=== PATIENT | female | born 1950 | race Caucasian/White ===

== ENCOUNTER 2023-09-22 06:53 | Emergency (ER) | payer MEDICARE, SELFPAY ==
[2023-09-22] VITALS (7 sets, daily range): BP systolic 126–167; BP diastolic 55–81; BMI 31.5
--- NOTE | 2023-09-22 07:31 | ED.GENMED ---
History of Present Illness
General
Chief Complaint: Chest Pain
Time Seen by Provider: 09/22/23 07:10
Travel History
Have you had any contact with someone who has COVID-19?: No
Do you have any symptoms of coronavirus? Fever > 100 degrees, chills, cough, shortness of breath, sore throat, loss of taste or smell, muscle aches, or headache?: No
History of Present Illness
History of Present Illness:
72 yo female w/ hx of HTN, Hypothyroidism and IBS presents to the Emergency Department for evaluation of chest pain radiating to the back beginning 1hr ago. Pain is rated 9/10, associated with L sided subjective 'heaviness'. No hx of similar. No
fevers, chills, sweats, coughing, SOB, N/V/D. Pain is not pleuritic. Recent admission last month for COPD exacerbation and BRADY. No leg swelling or extremity paresthesias. Non smoker.
Past History
Past History
ED Past Medical History: Asthma, COPD, Fibromyalgia, HTN and Other (ibs, complex Migraines, fibromyalgia, diverticulitis, sleep apnea); Negative CAD, IDDM, NIDDM or RI
ED Past Surgical History: Appendectomy, Cholecystectomy, Tonsilectomy and Other (partial gastrectomy, Billroth II)
Social History
Tobacco: Former smoker
Alcohol: None
Drug: None
Personal:
Living: with family
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
Family History
Family History: Other (No significant)
Review of Systems
Review of Systems
Allergies reviewed?: Yes
All Other Systems: ROS reviewed and negative except as documented in HPI and ROS
Phy Exam
Physical Exam
Physical Exam:
GEN: Well appearing, NAD, WDWN
Eyes: PERRLA, EOMs intact, no scleral icterus
HENT: NCAT, oral mucosa moist, no JVD
Lungs: CTAB, no wheezes, rales, rhonchi, normal chest wall excursion
Cardiac: RRR, no M/R/G, no peripheral edema. Radial pulses 2+ bilat/symmetric
Abdomen: S, NT, ND, NABS, no masses or hepatosplenomegaly
Neuro: AO x 3, bilateral upper and lower extremity strength intact and symmetric, with no limb drift x 4
MSK: No gross deformity or ecchymosis.
Skin: No rashes, petechiae. Normal color, no pallor or jaundice.
Psych: Calm, cooperative, proper hygiene
Scores
Heart Score for Chest Pain Patients
STEMI patient?: No
History: Slightly or Non-Suspicious
ECG: Normal
Age: >/= 65 years
Risk Factors: 1 or 2 Risk Factors
Troponin: </= Normal Limit
Heart Score for Chest Pain Patients: 3
Heart Score Risk: 2.5% MACE over next 6 weeks
Course
Orders/Labs/Results
Orders:
Orders
09/22/23 06:55
Electrocardiogram (*1) Urgent
Reason for Study: Chest Pain
09/22/23 06:56
EKG- Treatment ONCE
09/22/23 07:30
CR Chest - 2 Views Urgent
Comment:
Reason For Exam: chest pain, L side weakness
09/22/23 08:06
Basic Metabolic Panel Urgent
Complete Blood Count/With Diff Urgent
D-Dimer Urgent
Troponin I Urgent
09/22/23 09:29
Aspirin Chewable [Low Strength Aspirin] 243 mg PO NOW STA
09/22/23 09:30
EKG- Treatment ONCE
09/22/23 10:56
Troponin I Routine
09/22/23 11:00
EKG [Electrocardiogram (*1)] Routine
Reason for Study: Chest Pain
Abnormal Lab Results
09/22/23
08:06
RBC 3.93 L 10^6/uL
(4.20-5.40)
Hct 36.7 L %
(37.0-47.0)
MCHC 32.7 L g/dL
(33.0-37.0)
Absolute Lymphs (auto) 1.1 L 10^3/uL
(1.2-3.4)
Lymphocytes % 17.9 L %
(20.5-51.1)
Chloride 109 H mmol/L
(98-107)
BUN 40 H mg/dl
(7-17)
Creatinine 1.1 H mg/dL
(0.6-1.0)
Glucose 105 H mg/dl
(70-99)
09/22/23 08:06
09/22/23 08:06
Vital Signs
Initial and Last Documented VS:
Initial Vital Signs
Temp Pulse BP Pulse Ox
98.0 F 72 153/76 98
09/22/23 07:03 09/22/23 07:03 09/22/23 07:03 09/22/23 07:03
Last Documented Vital Signs
Temp Pulse Resp BP Pulse Ox
98.5 F 66 12 155/81 99
09/22/23 11:15 09/22/23 11:30 09/22/23 11:30 09/22/23 11:15 09/22/23 11:30
MDM/Problems Addressed
MDM/Problems Addressed:
72-year-old female presents with acute onset of chest pain. She has symmetric blood pressures and radial pulses, no strong risk factors for aortic dissection. Chest x-ray shows normal mediastinum and D-dimer is negative which is reassuring against
both dissection as well as pulmonary embolism. Initial and delta troponin negative. Patient's pain is reproducible on exam, recommend primary care follow-up
Comment
Comment:
Initial EKG independently interpreted by me shows normal sinus rhythm at a rate of 75, subtle ST depressions V2 through V6 are comparable to prior EKGs, no acute changes, QTc of 435
*Critical Care Note
Total Time (30-74mins, 75-104mins- exclusive of procedures): Not Applicable
ED Attending Note
-
Portions of this chart may have been created with voice recognition software.� Occasional wrong word or��sound alike� substitutions may have occurred due to the inherent limitations of voice recognition software.
Discharge Plan
Departure
Patient Disposition: Home (Routine Discharge)
Date of Disposition: 09/22/23
Time of Disposition: 11:38
Patient with high blood pressure during this ER visit?: No
Discharge Problem:
Atypical chest pain
Instructions: Chest Pain That Is Not Caused by the Heart (DC)
Prescriptions:
No Action
duloxetine [Cymbalta] 60 MG capsule,delayed release(DR/EC)
60 mg PO HS
Rx Instructions:
taken w/ 30mg = 90mg
albuterol sulfate 2.5 MG/3 ML solution for nebulization
2.5 mg inhalation R Q4HPRN PRN (Reason: asthma)
acetaminophen 325 MG tablet
650 mg PO Q6HPRN PRN (Reason: mild pain/ fever>100.5F) Qty: 0 0RF
aspirin 81 MG tablet,chewable
81 mg PO DAILY Qty: 81 0RF
Botox Cosmetic 50 UNITS recon soln
100 units intradermal [id number]
Dupixent Syringe 300 MG/2 ML syringe
300 mg SQ Q2W
atorvastatin 80 mg tablet
80 mg PO QPM
famotidine 40 mg tablet
40 mg PO HS
levothyroxine 100 mcg tablet
100 mcg PO DAILY
alprazolam 0.5 mg tablet
0.5 mg PO BID PRN (Reason: anxiety)
Patient Comments:
08/23/2022: last filled 08/16/22, 180 tabs for 90 days from [facility]#[id number]
lisinopril-hydrochlorothiazide 20-25 mg tablet
1 tab PO HS
Hold Instructions: hold until follow up with your primary care doctor
topiramate 100 mg tablet
100 mg PO BID
duloxetine 30 mg capsule,delayed release(DR/EC)
30 mg PO HS
Rx Instructions:
taken w/ 60mg = 90mg
lubiprostone 8 mcg capsule
8 mcg PO BID
dexlansoprazole 60 mg capsule,biphase delayed releas
60 mg PO DAILY
doxycycline hyclate 100 mg capsule
100 mg PO DAILY Qty: 5 0RF
Referrals:
Esperanza Ramirez MD [Family Provider] -
Interventions
Interventions:
*Risk Screen - Suicide Last Done: 09/22/23 08:06
*General Assessment Last Done: 09/22/23 08:06
*Neglect/Abuse Screening Last Done: 09/22/23 08:06
ED- Fall Risk Assessment Last Done: 09/22/23 08:06
*ED COVID-19 Vaccine History Last Done: 09/22/23 07:06
*Nursing Disposition Last Done: 09/22/23 11:39
ED- Cardiac Assessment Last Done: 09/22/23 08:06
Discharge Date and Time
Discharge Date/Time: 09/22/23 11:40
[2023-09-22 08:24] LABS: % Basophils 0.5 % (0-2); % Eosinophils 2.4 % (0-6); % Immature Granulocytes 0.2 % (0-0.5); % Lymphocytes 17.9 % (20.5-51.1); % Monocytes 6.6 % (1.7-9.3); % Neutrophils 72.4 % (42.2-75.2); Absolute Eosinophils 0.2 10^3/uL (0-0.7); Absolute Lymphocytes 1.1 10^3/uL (1.2-3.4); Absolute Monocytes 0.4 10^3/uL (0.1-0.6); Absolute Neutrophils 4.6 10^3/uL (1.4-6.5); Hematocrit 36.7 % (37.0-47.0); Mean Corp Hgb Conc. 32.7 g/dL (33.0-37.0); Mean Corpuscular Hgb 30.5 pg (27.0-31.0); Mean Corpuscular Volume 93.4 fL (81.0-99.0); Mean Platelet Volume 9.9 fL (7.4-10.4); Nucleated Red Blood Cells % 0 %; Platelet Count 228 10^3/uL (130-400); Red Blood Cell Count 3.93 10^6/uL (4.20-5.40); White Blood Cell Count 6.3 10^3/uL (4.8-10.8)
[2023-09-22 08:47] LABS: Troponin I < 0.012 ng/ml
[2023-09-22 08:50] LABS: Blood Urea Nitrogen 40 mg/dl (7-17); Calcium 8.5 mg/dl (8.4-10.2); Carbon Dioxide 22 mmol/L (22-30); Chloride 109 mmol/L (98-107); Estimated Creatinine Clearance 55 ml/min; Glucose 105 mg/dl (70-99); Sodium 137 mmol/L (135-145); eGFR 54.06
[2023-09-22 09:24] LABS: D-Dimer 0.43 ug/mlFEU (0.00-0.50)
[2023-09-22] MEDS: LOW STRENGTH ASPIRIN 243 MG PO (09:45)
[2023-09-22 11:29] LABS: Troponin I < 0.012 ng/ml
== END 2023-09-22 11:40 | disposition home or self-care (01) ==
LOC: EMR 06:53
PROVIDERS: Physician Assistant; EMERGENCY PHYSICIAN Emergency Medicine; FAMILY PHYSICIAN Internal Medicine
DX: R07.89 Other chest pain (principal); I10 Essential (primary) hypertension; E03.9 Hypothyroidism, unspecified; K58.9 Irritable bowel syndrome, unspecified; J44.89 Other specified chronic obstructive pulmonary disease; G47.30 Sleep apnea, unspecified; M79.7 Fibromyalgia; Z90.49 Acquired absence of other specified parts of digestive tract
CPT/HCPCS: 99283; 71046; 80048; 84484; 85025; 85379; 93005

== ENCOUNTER → 2024-04-09 06:17 | Day surgery (SDC) | payer MEDICARE, SELFPAY | LOC: GI 06:17 | PROVIDERS: ATTENDING PHYSICIAN Internal Medicine | DX: R13.10 Dysphagia, unspecified (principal); Z98.0 Intestinal bypass and anastomosis status | CPT/HCPCS: 43249 ==

== ENCOUNTER 2024-05-03 16:38 | Emergency (ER) | payer MEDICARE, SELFPAY ==
[2024-05-03 16:39] VITALS: BP 110/66
--- NOTE | 2024-05-03 17:17 | ED.GENMED ---
History of Present Illness
<MIRELA Orlando - Last Filed: 05/03/24 19:57>
General
Chief Complaint: Breathing Problem
Source: patient
Exam Limitations: none
Time Seen by Provider: 05/03/24 17:06
Nursing documentation reviewed up to this point in time: agreed with
History of Present Illness
History of Present Illness:
Patient is a 73yo F w/ PMH of asthma who presents to the ED after asthma attack around 4 pm that was not full relieved w/4 puffs of Xopenex inhaler. Inhaler helped some but pt states she has been dealing w/ severe asthma for years and knows when she
needs to come to ER. Pt states asthma has been bothering her more w/ current weather but attack started due to being in [place] basement. Reports coughing, wheezing, and SOB. Does not appear in distress but reports continued SOB w/ rest. Denies recent
illness, fever, chills, chest pain, and N/V. Reports receiving IV steroids in past for severe attacks.
Past History
<MIRELA Orlando - Last Filed: 05/03/24 19:57>
Past History
ED Past Medical History: Asthma, COPD, Fibromyalgia, HTN and Other (ibs, complex Migraines, fibromyalgia, diverticulitis, sleep apnea); Negative CAD, IDDM, NIDDM or DE
ED Past Surgical History: Appendectomy, Cholecystectomy, Tonsilectomy and Other (partial gastrectomy, Billroth II)
Social History
Tobacco: Former smoker
Alcohol: None
Drug: None
Personal:
Living: with family
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
Family History
Family History: Other (No significant)
Review of Systems
<MIRELA Orlando - Last Filed: 05/03/24 19:57>
Review of Systems
Constitutional: Denies fever, fatigue or chills
EENT: Denies sore throat or runny nose
Respiratory: Reports cough and trouble breathing
Cardiac: Denies chest pain or palpitations
ABD/GI: Denies abdominal pain, nausea, vomiting, diarrhea or constipated
Neurological: Denies dizzy, headache or numbness
Phy Exam
<Carissa Weldon [facility] - Last Filed: 05/03/24 19:57>
General Physical Exam
General Presentation: no apparent distress
General age: appears stated age
General Skin: warm and dry
General Habitus: normal
General Mental: alert
Cardiovascular Exam
Cardiovascular Exam: regular rate/rhythm, no edema, no gallop and no murmur
Pulmonary Exam
Pulmonary Exam: no rales, no crackles, no rhonchi and generalized wheezing
Gastrointestinal Exam
Gastrointestinal Exam: non tender, soft, no organomegaly and non distended
Neurological Exam
Neurological Exam: alert, oriented x3 and speech normal
Musculoskeletal Exam
Musculoskeletal Exam: no edema
Scores
<Carissa Weldon [facility] - Last Filed: 05/03/24 19:57>
Heart Failure Risk
Heart Failure Risk Score: Not Applicable
Course
<Carissa Weldon [facility] - Last Filed: 05/03/24 19:57>
Orders/Labs/Results
Orders:
Orders
05/03/24 17:34
Dexamethasone Sod Phosphate [Decadron] 10 mg IV NOW STA
05/03/24 17:35
Electrocardiogram (*1) Urgent
Reason for Study: Shortness of Breath
EKG- Treatment ONCE
Ipratropium/Albuterol Sulfate [Duoneb] 3 ml INH R NOW ONE
CR Chest - 2 Views Urgent
Comment:
Reason For Exam: dyspnea
Vital Signs
Initial and Last Documented VS:
Initial Vital Signs
Temp Pulse Resp BP Pulse Ox
97.6 F 80 18 110/66 99
05/03/24 16:39 05/03/24 16:39 05/03/24 16:39 05/03/24 16:39 05/03/24 16:39
Last Documented Vital Signs
Temp Pulse Resp BP Pulse Ox
97.6 F 64 12 114/52 99
05/03/24 16:39 05/03/24 19:30 05/03/24 19:15 05/03/24 19:00 05/03/24 19:30
<Mitch Mclean DO - Last Filed: 05/03/24 19:27>
Orders/Labs/Results
Orders:
Orders
05/03/24 17:34
Dexamethasone Sod Phosphate [Decadron] 10 mg IV NOW STA
05/03/24 17:35
Electrocardiogram (*1) Urgent
Reason for Study: Shortness of Breath
EKG- Treatment ONCE
Ipratropium/Albuterol Sulfate [Duoneb] 3 ml INH R NOW ONE
CR Chest - 2 Views Urgent
Comment:
Reason For Exam: dyspnea
Vital Signs
Initial and Last Documented VS:
Initial Vital Signs
Temp Pulse Resp BP Pulse Ox
97.6 F 80 18 110/66 99
05/03/24 16:39 05/03/24 16:39 05/03/24 16:39 05/03/24 16:39 05/03/24 16:39
Last Documented Vital Signs
Temp Pulse Resp BP Pulse Ox
97.6 F 64 12 114/52 99
05/03/24 16:39 05/03/24 19:30 05/03/24 19:15 05/03/24 19:00 05/03/24 19:30
<MIRELA Orlando - Last Filed: 05/03/24 19:57>
MDM/Problems Addressed
Differential Diagnosis Includes:
asthma exacerbation, PNA, dust allergy reaction
<MIRELA Orlando - Last Filed: 05/03/24 19:57>
*Critical Care Note
Total Time (30-74mins, 75-104mins- exclusive of procedures): Not Applicable
<Mitch Mclean DO - Last Filed: 05/03/24 19:27>
*Pulse Oximetry
Patient hypoxic: no
*EKG
Interpreted by ED Provider?: Yes
EKG Intrepretation Date: 05/03/24
<Mitch Mclean DO - Last Filed: 05/03/24 19:27>
Update Note
Update Note:
05/03/2024 1924 PM: Patient states that she is feeling better. Reviewed lab work and x-rays with her. She wishes to be discharged home. She does not need any of her albuterol supplies. She will get a prescription for prednisone. She has no
further questions at this time. Patient being discharged in improved condition.
ED Attending Note
<MIRELA Orlando - Last Filed: 05/03/24 19:57>
-
Portions of this chart may have been created with voice recognition software.� Occasional wrong word or��sound alike� substitutions may have occurred due to the inherent limitations of voice recognition software.
<Mitch Mclean DO - Last Filed: 05/03/24 19:27>
ED Attending Note
Patient seen and examined by attending physician: Yes
I performed the substantive portion of visit, reviewed & personally made and approve the management plan that is documented in note by myself or CHRIST.: Yes
ED Attending Note:
Pleasant 73-year-old female presents to the emergency department after an asthma attack. Patient has known asthma and states that she took her usual Xopenex rescue inhaler with minimal to no relief. Patient states that with the dry weather and her
going down into her [place] basement today, her symptoms are exacerbated. She states that she has been 'dealing with this for years and knows when she needs to come in to the emergency department for extra treatment '. Denies chest pain or any other
symptoms. She does state that in the past IV steroids in the emergency department have helped. Patient was seen in conjunction with the PA student. I have reviewed and agree with the history and treatment plan presented. On my independent
physical exam, patient is awake, alert, and oriented x3 minimal acute distress. Heart is regular rate rhythm. No respiratory distress.
Discharge Plan
Departure
Patient Disposition: Home (Routine Discharge)
Date of Disposition: 05/03/24
Time of Disposition: 19:25
Patient with high blood pressure during this ER visit?: No
Discharge Problem:
Asthma exacerbation, Asthma
Instructions: Asthma, Adult (DC), Shortness of Breath (Dyspnea) (DC)
Prescriptions:
New
prednisone 50 mg tablet
50 mg PO DAILY Qty: 5 0RF
No Action
duloxetine [Cymbalta] 60 MG capsule,delayed release(DR/EC)
60 mg PO HS
Rx Instructions:
taken w/ 30mg = 90mg
albuterol sulfate 2.5 MG/3 ML solution for nebulization
2.5 mg inhalation R Q4HPRN PRN (Reason: asthma)
acetaminophen 325 MG tablet
650 mg PO Q6HPRN PRN (Reason: mild pain/ fever>100.5F) Qty: 0 0RF
aspirin 81 MG tablet,chewable
81 mg PO DAILY Qty: 81 0RF
Botox Cosmetic 50 UNITS recon soln
100 units intradermal [id number]
Dupixent Syringe 300 MG/2 ML syringe
300 mg SQ Q2W
atorvastatin 80 mg tablet
80 mg PO QPM
famotidine 40 mg tablet
40 mg PO HS
levothyroxine 100 mcg tablet
100 mcg PO DAILY
alprazolam 0.5 mg tablet
0.5 mg PO BID PRN (Reason: anxiety)
Patient Comments:
08/23/2022: last filled 08/16/22, 180 tabs for 90 days from [facility]#[id number]
lisinopril-hydrochlorothiazide 20-25 mg tablet
1 tab PO HS
topiramate 100 mg tablet
100 mg PO BID
duloxetine 30 mg capsule,delayed release(DR/EC)
30 mg PO HS
Rx Instructions:
taken w/ 60mg = 90mg
lubiprostone 8 mcg capsule
8 mcg PO BID
dexlansoprazole 60 mg capsule,biphase delayed releas
60 mg PO DAILY
doxycycline hyclate 100 mg capsule
100 mg PO DAILY Qty: 5 0RF
Referrals:
Esperanza Ramirez MD [Family Provider] -
Activity Restrictions/Additional Instructions:
Your prescriptions were electronically transmitted to the pharmacy of your choice.
It was a pleasure meeting you and taking part in your care. We hope for your continued healing and wellness.
Please read discharge instructions in their entirety. However, they are for general education and may not describe your exact diagnosis at discharge. Information on your ER visit and medical conditions were discussed with you along with appropriate
follow up information...
If indicated, please take your medications as instructed and indicated on discharge paperwork.
Please schedule a follow up appointment as directed. Call to schedule an appointment
Please return to the emergency department with ANY change in, persisting, or worsening of symptoms. If any of your symptoms do not improve, or persist, or become more severe within 6-12 hours, please return to the emergency department for further
care.
Please return to the emergency department if you develop a headache, neck pain/stiffness, fever greater than 100.4F, chest pain, shortness of breath, persistent nausea, vomiting, slurred speech, difficulty walking, numbness/tingling, weakness, signs
of infection or any other symptoms that are worrisome to you.
If you have any questions or concerns please do not hesitate to call the Hospital at or E-mail me directly at [email or web address]
Interventions
Interventions:
*Risk Screen - Suicide Last Done: 05/03/24 16:39
*General Assessment Last Done: 05/03/24 16:39
*Neglect/Abuse Screening Last Done: 05/03/24 16:39
*ED COVID-19 Vaccine History Last Done: 05/03/24 17:21
*Nursing Disposition Last Done: 05/03/24 19:33
ED- Cardiac Assessment Last Done: 05/03/24 17:24
ED- Pulmonary Assessment Last Done: 05/03/24 17:24
Discharge Date and Time
Discharge Date/Time: 05/03/24 19:40
Print Language: SWEDISH
[2024-05-03 17:20] VITALS: BMI 44.5
[2024-05-03 17:23] VITALS: BP 114/58
[2024-05-03] MEDS: DECADRON 10 MG IV (17:53)
[2024-05-03] MEDS: DUONEB 3 ML INH (17:53)
[2024-05-03 18:00] VITALS: BP 120/62
[2024-05-03 19:00] VITALS: BP 114/52
== END 2024-05-03 19:40 | disposition home or self-care (01) ==
LOC: EMR 16:38
PROVIDERS: EMERGENCY PHYSICIAN Student in an Organized Health Care Education/Training Program; FAMILY PHYSICIAN Internal Medicine
DX: J45.901 Unspecified asthma with (acute) exacerbation (principal); Z87.891 Personal history of nicotine dependence
CPT/HCPCS: 99284; 96374; 94640; 71046; 93005

== ENCOUNTER → 2024-05-06 13:18 | Outpatient (REF) | payer MEDICARE, SELFPAY | LOC: RCS 13:18 | PROVIDERS: ATTENDING PHYSICIAN Internal Medicine Cardiovascular Disease; FAMILY PHYSICIAN Internal Medicine | DX: I50.32 Chronic diastolic (congestive) heart failure (principal); R94.31 Abnormal electrocardiogram [ECG] [EKG] | CPT/HCPCS: 93306; Q9950 ==

== ENCOUNTER → 2024-05-19 10:52 | Outpatient (REF) | payer MEDICARE, SELFPAY | LOC: WDC 10:52 | PROVIDERS: ATTENDING PHYSICIAN Internal Medicine | DX: Z12.31 Encounter for screening mammogram for malignant neoplasm of breast (principal) | CPT/HCPCS: 77063; 77067 ==

== ENCOUNTER 2024-05-27 20:36 | Emergency (ER) | payer MEDICARE, SELFPAY ==
[2024-05-27 20:36] VITALS: BMI 45.7
[2024-05-27 20:40] VITALS: BP 164/83
[2024-05-27 21:06] VITALS: BP 124/90
--- NOTE | 2024-05-27 21:10 | ED.GENMED ---
Addendum entered and electronically signed by Donta Herrera MD 05/27/24 23:42:
While pending admission patient converted to sinus rhythm while on diltiazem. Repeat EKG confirms normal sinus rhythm. Patient completely asymptomatic after conversion to sinus rhythm. Vital signs otherwise stable including normal blood pressure.
Repeat troponin pending, if negative will plan to discharge on metoprolol, Eliquis and have patient follow-up with cardiology as an outpatient. She feels very comfortable with this plan.
Original Note:
History of Present Illness
General
Chief Complaint: Chest Pain
Source: patient and spouse
Exam Limitations: none
Time Seen by Provider: 05/27/24 21:02
Nursing documentation reviewed up to this point in time: agreed with
History of Present Illness
History of Present Illness:
73-year-old female with past medical history of asthma, hypertension, hyperlipidemia, GERD who presents to the emergency department for evaluation of chest pain. The patient reports acute onset tonight just prior to arrival while at rest and has
been constant since that time. She reports an intense sharp substernal pain 10/10 intensity radiates through to her back. Reports associated tingling in the left arm. She denies any shortness of breath. She does report some palpitations. Denies
any nausea, vomiting, diaphoresis. Denies any significant abdominal pain. She has not noticed any swelling or pain in the legs. She denies having had similar symptoms in the past. She was noted to be in atrial fibrillation on arrival�she denies
any known history of A-fib. She has seen Dr. Maldonado for cardiology screening in the past. She is not on any blood thinners. She does note that she has been under treatment for bronchitis with steroids for the past few days.
Past History
Past History
ED Past Medical History: Asthma, COPD, Fibromyalgia, HTN and Other (ibs, complex Migraines, fibromyalgia, diverticulitis, sleep apnea); Negative CAD, IDDM, NIDDM or NM
ED Past Surgical History: Appendectomy, Cholecystectomy, Tonsilectomy and Other (partial gastrectomy, Billroth II)
Social History
Tobacco: Former smoker
Alcohol: None
Drug: None
Personal:
Living: with family
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
Family History
Family History: Other (No significant)
Review of Systems
Review of Systems
All Other Systems: ROS reviewed and negative except as documented in HPI and ROS
Constitutional: Denies fever
Respiratory: Reports cough; Denies trouble breathing
Cardiac: Reports chest pain and palpitations; Denies diaphoresis or syncope
ABD/GI: Denies abdominal pain, nausea or vomiting
: Denies flank pain
Musculoskeletal: Denies edema, neck pain or back pain
Neurological: Denies dizzy or headache
Phy Exam
Physical Exam
Physical Exam:
General: Awake, alert, oriented x3; appears anxious
Head: Normocephalic, atraumatic
Eyes: Conjunctiva normal, sclera anicteric
Throat: Airway intact, handling secretions
Neck: Trachea midline, supple without meningismus
Lungs: Faint scattered wheezing; mild tachypnea; normal pulse ox on room air
Heart: Tachycardia with irregularly irregular rhythm, no murmurs, gallops, or rubs
Abd: Soft, non distended, nontender
Neuro: Cranial nerves grossly intact, speech fluid
Extremities: No edema in extremities, equal and symmetric pulses in all extremities
Scores
Heart Failure Risk
Heart Failure Risk Score: Not Applicable
Heart Score for Chest Pain Patients
STEMI patient?: No
History: Slightly or Non-Suspicious
ECG: Nonspecific Repolarization
Age: >/= 65 years
Risk Factors: >/= 3 Risk Factors or History of CAD
Troponin: </= Normal Limit
Heart Score for Chest Pain Patients: 5
Heart Score Risk: 20.3% MACE over next 6 weeks
Withdrawal Assessment of Alcohol
Withdrawal Assessment Completed?: Not applicable
Course
Orders/Labs/Results
Orders:
Orders
05/27/24 20:37
EKG [Electrocardiogram (*1)] Urgent
Reason for Study: Chest Pain
EKG- Treatment ONCE
05/27/24 21:03
CR Chest Portable - 1 View Urgent
Comment:
Reason For Exam: chest pain
Reason Study Needs to be Portable: Unable to Transport
05/27/24 21:08
CT Chest/abd/pelvis Angio W/wo Urgent
Comment:
Reason For Exam: acute onset CP radiating to back
05/27/24 21:16
Basic Metabolic Panel Urgent
Complete Blood Count/With Diff Urgent
TSH Reflex To Free T4 Urgent
Troponin I Urgent
05/27/24 21:17
Diltiazem HCl [Cardizem] 10 mg IV NOW STA
05/27/24 21:19
0.9% Sodium Chloride 500 ml [Nss] 500 ml IV BOLUS
05/27/24 21:37
PTT Urgent
Prothrombin Time Urgent
05/27/24 22:08
Diltiazem HCl [Cardizem] 10 mg IV NOW STA
05/27/24 22:55
Diltiazem 125 mg/125 ml Nss [Cardizem] 125 mg in 125 ml IV NOW
Initial dose in mg/hr, then titrate:: 5
Titrate to keep:: Heart rate 80-100 bpm
Titrate by mg/hr:: 5 mg/hr
Frequency of titrations (minutes):: 15
Maximum dose in mg/hr:: 15
05/27/24 22:56
Apixaban [Eliquis] 5 mg PO ONCE ONE
05/28/24 01:30
Troponin I Urgent
Abnormal Lab Results
05/27/24
21:16
WBC 11.7 H 10^3/uL
(4.8-10.8)
RBC 3.70 L 10^6/uL
(4.20-5.40)
Hgb 11.5 L g/dL
(12.0-16.0)
Hct 35.5 L %
(37.0-47.0)
MCH 31.1 H pg
(27.0-31.0)
MCHC 32.4 L g/dL
(33.0-37.0)
Abs Immat Gran (auto) 0.2 H 10^3/uL
(0-0.05)
Absolute Neuts (auto) 8.3 H 10^3/uL
(1.4-6.5)
Absolute Monos (auto) 0.9 H 10^3/uL
(0.1-0.6)
Immature Gran % 1.5 H %
(0-0.5)
Lymphocytes % 19.5 L %
(20.5-51.1)
BUN 37 H mg/dl
(7-17)
05/27/24 21:16
05/27/24 21:16
Vital Signs
Initial and Last Documented VS:
Initial Vital Signs
Temp Pulse Resp BP Pulse Ox
36.4 C 72 22 164/83 97
05/27/24 20:40 05/27/24 20:40 05/27/24 20:40 05/27/24 20:40 05/27/24 20:40
Last Documented Vital Signs
Temp Pulse Resp BP Pulse Ox
36.4 C 123 15 125/62 97
05/27/24 20:40 05/27/24 22:05 05/27/24 22:05 05/27/24 22:04 05/27/24 22:05
MDM/Problems Addressed
Differential Diagnosis Includes:
Symptomatic A-fib/rapid A-fib, PE, aortic dissection, ACS/angina, pneumothorax, pneumonia, pleurisy, pericarditis/myocarditis
MDM/Problems Addressed:
73-year-old female presents to the emergency room for evaluation of acute onset chest pain radiating to the back associated palpitations. Symptoms started tonight in the setting of recent treatment for acute bronchitis. Hypertensive and
tachycardic on arrival; EKG shows A-fib with RVR. This is new onset for the patient. Physical exam as above. Will place an IV check labs including a CBC and a CMP, coags, troponin. Will check stat chest x-ray to rule out pneumothorax or
pneumonia. Plan likely for CTA to rule out dissection or PE. Will monitor on telemetry. Diltiazem for rate control. Reassess after the above.
Labs reviewed: CBC shows leukocytosis to 11.7 in the setting of recent steroids, stable anemia. CMP no clinically significant abnormalities. Initial troponin undetectable. Chest x-ray showed no acute disease. Sent for CTA which showed no
evidence for dissection, no clear PE. Remains tachycardic after initial dose of diltiazem will repeat and reassess. Trend troponins.
After second bolus of diltiazem patient remains tachycardic heart rate 120s-130s. Started on diltiazem infusion. Will admit for continued treatment of new onset A-fib with RVR. Can start treatment with Eliquis. Discussed case with hospitalist.
Chronic conditions affecting care:
Obesity, hypertension
Acute Exacerbation and/or Progression of Chronic Illness:
Acutely hypertensive
Acute Exacerbation and/or Progression of Chronic Illness: HTN
*Radiology
Radiology exam reviewed: preliminary read by ED provider and radiology read reviewed
*Pulse Oximetry
Patient hypoxic: no
*EKG
Interpreted by ED Provider?: Yes
Heart Rate: 137
Rate: tachycardiac
Rhythm: a-fib
[place]: normal axis
Interval: normal interval
QRS Pattern: normal QRS
Ischemia: non-specific ST changes
*Critical Care Note
Total Time (30-74mins, 75-104mins- exclusive of procedures): 30
comment:
Critical care statement: A total of 30 minutes of critical care time was provided for this patient. This includes management of unstable vital signs, evaluation of the patient at bedside, frequent reassessment, discussion with
consultants/hospitalist, and review of pertinent medical records. This time was separate from time utilized to perform any aforementioned documented procedures
Data Reviewed
Source: patient and spouse
Patient Management
Discussion with other providers: Hospitalist (Discussed with hospitalist)
Escalation/DeEscalation of care consider admission/obs:
Admission indicated
ED Attending Note
-
Portions of this chart may have been created with voice recognition software.� Occasional wrong word or��sound alike� substitutions may have occurred due to the inherent limitations of voice recognition software.
Discharge Plan
Departure
Patient Disposition: Admit
Date of Disposition: 05/27/24
Time of Disposition: 23:00
Admit to doctor: Landen
Presentation/result/management discussed w/ accepting MD/DO: Hospitalist
Discharge Problem:
Atrial fibrillation with rapid ventricular response
Prescriptions:
No Action
duloxetine [Cymbalta] 60 MG capsule,delayed release(DR/EC)
60 mg PO HS
Rx Instructions:
taken w/ 30mg = 90mg
albuterol sulfate 2.5 MG/3 ML solution for nebulization
2.5 mg inhalation R Q4HPRN PRN (Reason: asthma)
acetaminophen 325 MG tablet
650 mg PO Q6HPRN PRN (Reason: mild pain/ fever>100.5F) Qty: 0 0RF
aspirin 81 MG tablet,chewable
81 mg PO DAILY Qty: 81 0RF
Dupixent Syringe 300 MG/2 ML syringe
300 mg SQ Q2W
atorvastatin 80 mg tablet
80 mg PO QPM
levothyroxine 100 mcg tablet
100 mcg PO DAILY
lisinopril-hydrochlorothiazide 20-25 mg tablet
1 tab PO HS
topiramate 100 mg tablet
100 mg PO BID
duloxetine 30 mg capsule,delayed release(DR/EC)
30 mg PO HS
Rx Instructions:
taken w/ 60mg = 90mg
dexlansoprazole 60 mg capsule,biphase delayed releas
60 mg PO DAILY
prednisone 20 mg tablet
60 mg PO .TAPER
Patient Comments:
05/27/2024: Per note in [facility] on 05/26/24 'Prednoisone 60 mg and taper down over 4 weeks.'
buspirone 10 mg tablet
10 mg PO BID
azithromycin 500 mg tablet
500 mg PO DAILY
levalbuterol tartrate 45 mcg/actuation HFA aerosol inhaler
1 puff INHALATION R Q6HPRN PRN (Reason: sob/wheezing)
Botox 200 unit recon soln
200 unit intradermal [id number]
Trelegy Ellipta 200-62.5-25 mcg blister with device
1 inh INHALATION R DAILY
lubiprostone [Amitiza] 24 mcg Capsule
24 mcg PO BID
Referrals:
Esperanza Ramirez MD [Family Provider] -
Interventions
Interventions:
*General Assessment Last Done: 05/27/24 21:29
*Neglect/Abuse Screening Last Done: 05/27/24 21:29
*ED COVID-19 Vaccine History Last Done: 05/27/24 21:29
ED- Cardiac Assessment Last Done: 05/27/24 21:29
Discharge Date and Time
Print Language: YORUBA
[2024-05-27 21:22] LABS: % Basophils 0.2 % (0-2); % Eosinophils 0.2 % (0-6); % Immature Granulocytes 1.5 % (0-0.5); % Lymphocytes 19.5 % (20.5-51.1); % Monocytes 7.3 % (1.7-9.3); % Neutrophils 71.3 % (42.2-75.2); Absolute Immature Granulocytes 0.2 10^3/uL (0-0.05); Absolute Lymphocytes 2.3 10^3/uL (1.2-3.4); Absolute Monocytes 0.9 10^3/uL (0.1-0.6); Absolute Neutrophils 8.3 10^3/uL (1.4-6.5); Hematocrit 35.5 % (37.0-47.0); Hemoglobin 11.5 g/dL (12.0-16.0); Mean Corp Hgb Conc. 32.4 g/dL (33.0-37.0); Mean Corpuscular Hgb 31.1 pg (27.0-31.0); Mean Corpuscular Volume 95.9 fL (81.0-99.0); Mean Platelet Volume 9.7 fL (7.4-10.4); Nucleated Red Blood Cells % 0 %; Platelet Count 283 10^3/uL (130-400); Red Cell Dist. Width 13.8 % (11.5-14.5); White Blood Cell Count 11.7 10^3/uL (4.8-10.8)
[2024-05-27] MEDS: CARDIZEM 10 MG IV ×2 (21:23→22:18)
[2024-05-27] MEDS: NSS 500 IV (21:24)
[2024-05-27 21:25] VITALS: BP 127/81
[2024-05-27 21:45] LABS: Blood Urea Nitrogen 37 mg/dl (7-17); Calcium 8.7 mg/dl (8.4-10.2); Carbon Dioxide 25 mmol/L (22-30); Chloride 106 mmol/L (98-107); Estimated Creatinine Clearance 64 ml/min; Glucose 92 mg/dl (70-99); Sodium 142 mmol/L (135-145); Troponin I < 0.012 ng/ml; eGFR > 60.00
[2024-05-27 21:56] LABS: APTT 25.7 Sec (23.4-35.0); INR 0.92; PT 12.8 Sec (11.4-14.6)
[2024-05-27 22:04] VITALS: BP 125/62
[2024-05-27 22:15] LABS: TSH Reflex To Free T4 0.63 uIU/ml (0.47-4.68)
[2024-05-27 22:30] VITALS: BP 117/63
[2024-05-27 23:00] VITALS: BP 100/64
[2024-05-27] MEDS: ELIQUIS 5 MG PO (23:27)
--- NOTE | 2024-05-27 23:34 | ED.GENMED ---
History of Present Illness
General
Chief Complaint: Chest Pain
Time Seen by Provider: 05/27/24 21:02
Past History
Past History
ED Past Medical History: Asthma, COPD, Fibromyalgia, HTN and Other (ibs, complex Migraines, fibromyalgia, diverticulitis, sleep apnea); Negative CAD, IDDM, NIDDM or ND
ED Past Surgical History: Appendectomy, Cholecystectomy, Tonsilectomy and Other (partial gastrectomy, Billroth II)
Social History
Tobacco: Former smoker
Alcohol: None
Drug: None
Personal:
Living: with family
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
Family History
Family History: Other (No significant)
Course
Orders/Labs/Results
Orders:
Orders
05/27/24 20:37
EKG [Electrocardiogram (*1)] Urgent
Reason for Study: Chest Pain
EKG- Treatment ONCE
05/27/24 21:03
CR Chest Portable - 1 View Urgent
Comment:
Reason For Exam: chest pain
Reason Study Needs to be Portable: Unable to Transport
05/27/24 21:08
CT Chest/abd/pelvis Angio W/wo Urgent
Comment:
Reason For Exam: acute onset CP radiating to back
05/27/24 21:16
Basic Metabolic Panel Urgent
Complete Blood Count/With Diff Urgent
TSH Reflex To Free T4 Urgent
Troponin I Urgent
05/27/24 21:17
Diltiazem HCl [Cardizem] 10 mg IV NOW STA
05/27/24 21:19
0.9% Sodium Chloride 500 ml [Nss] 500 ml IV BOLUS
05/27/24 21:37
PTT Urgent
Prothrombin Time Urgent
05/27/24 22:08
Diltiazem HCl [Cardizem] 10 mg IV NOW STA
05/27/24 22:55
Diltiazem 125 mg/125 ml Nss [Cardizem] 125 mg in 125 ml IV NOW
Initial dose in mg/hr, then titrate:: 5
Titrate to keep:: Heart rate 80-100 bpm
Titrate by mg/hr:: 5 mg/hr
Frequency of titrations (minutes):: 15
Maximum dose in mg/hr:: 15
05/27/24 22:56
Apixaban [Eliquis] 5 mg PO ONCE ONE
05/28/24 01:30
Troponin I Urgent
Abnormal Lab Results
05/27/24
21:16
WBC 11.7 H 10^3/uL
(4.8-10.8)
RBC 3.70 L 10^6/uL
(4.20-5.40)
Hgb 11.5 L g/dL
(12.0-16.0)
Hct 35.5 L %
(37.0-47.0)
MCH 31.1 H pg
(27.0-31.0)
MCHC 32.4 L g/dL
(33.0-37.0)
Abs Immat Gran (auto) 0.2 H 10^3/uL
(0-0.05)
Absolute Neuts (auto) 8.3 H 10^3/uL
(1.4-6.5)
Absolute Monos (auto) 0.9 H 10^3/uL
(0.1-0.6)
Immature Gran % 1.5 H %
(0-0.5)
Lymphocytes % 19.5 L %
(20.5-51.1)
BUN 37 H mg/dl
(7-17)
05/27/24 21:16
05/27/24 21:16
Vital Signs
Initial and Last Documented VS:
Initial Vital Signs
Temp Pulse Resp BP Pulse Ox
36.4 C 72 22 164/83 97
05/27/24 20:40 05/27/24 20:40 05/27/24 20:40 05/27/24 20:40 05/27/24 20:40
Last Documented Vital Signs
Temp Pulse Resp BP Pulse Ox
36.4 C 123 15 125/62 97
05/27/24 20:40 05/27/24 22:05 05/27/24 22:05 05/27/24 22:04 05/27/24 22:05
ED Attending Note
-
Portions of this chart may have been created with voice recognition software.� Occasional wrong word or��sound alike� substitutions may have occurred due to the inherent limitations of voice recognition software.
Discharge Plan
Departure
Patient Disposition: Admit
Date of Disposition: 05/27/24
Time of Disposition: 23:00
Admit to doctor: Landen
Presentation/result/management discussed w/ accepting MD/DO: Hospitalist
Patient with high blood pressure during this ER visit?: Yes
Discharge Problem:
Atrial fibrillation with rapid ventricular response, Chest pain
Instructions: Atrial Fibrillation (DC), Chest Pain CBC Follow Up
Prescriptions:
New
Eliquis 5 mg tablet
5 mg PO BID Qty: 60 0RF
metoprolol succinate [Toprol XL] 25 mg tablet extended release 24 hr
12.5 mg PO DAILY Qty: 30 0RF
No Action
duloxetine [Cymbalta] 60 MG capsule,delayed release(DR/EC)
60 mg PO HS
Rx Instructions:
taken w/ 30mg = 90mg
albuterol sulfate 2.5 MG/3 ML solution for nebulization
2.5 mg inhalation R Q4HPRN PRN (Reason: asthma)
acetaminophen 325 MG tablet
650 mg PO Q6HPRN PRN (Reason: mild pain/ fever>100.5F) Qty: 0 0RF
aspirin 81 MG tablet,chewable
81 mg PO DAILY Qty: 81 0RF
Dupixent Syringe 300 MG/2 ML syringe
300 mg SQ Q2W
atorvastatin 80 mg tablet
80 mg PO QPM
levothyroxine 100 mcg tablet
100 mcg PO DAILY
lisinopril-hydrochlorothiazide 20-25 mg tablet
1 tab PO HS
topiramate 100 mg tablet
100 mg PO BID
duloxetine 30 mg capsule,delayed release(DR/EC)
30 mg PO HS
Rx Instructions:
taken w/ 60mg = 90mg
dexlansoprazole 60 mg capsule,biphase delayed releas
60 mg PO DAILY
prednisone 20 mg tablet
60 mg PO .TAPER
Patient Comments:
05/27/2024: Per note in [facility] on 05/26/24 'Prednoisone 60 mg and taper down over 4 weeks.'
buspirone 10 mg tablet
10 mg PO BID
azithromycin 500 mg tablet
500 mg PO DAILY
levalbuterol tartrate 45 mcg/actuation HFA aerosol inhaler
1 puff INHALATION R Q6HPRN PRN (Reason: sob/wheezing)
Botox 200 unit recon soln
200 unit intradermal [id number]
Trelegy Ellipta 200-62.5-25 mcg blister with device
1 inh INHALATION R DAILY
lubiprostone [Amitiza] 24 mcg Capsule
24 mcg PO BID
Referrals:
Esperanza Ramirez MD [Family Provider] -
Rodo Maldonado MD [Active] - Call in 1-3 days for appt
Activity Restrictions/Additional Instructions:
Thank you for visiting the Emergency Department at [facility].
1. Please schedule a follow up appointment as directed. Call first thing tomorrow morning to make an appointment.
2. If indicated, please take your medications as instructed and indicated on discharge paperwork.
3. If any of your symptoms do not improve, or persist, or become more severe within 6-12 hours, please return to the emergency department for further care.
4. Please return to the emergency department if you develop a headache, neck pain/stiffness, fever greater than 100.4F, chest pain, shortness of breath, persistent nausea, vomiting, slurred speech, difficulty walking, numbness/tingling, weakness,
signs of infection or any other symptoms that are worrisome to you.
Please call [phone] if you have any questions.
Interventions
Interventions:
*General Assessment Last Done: 05/27/24 21:29
*Neglect/Abuse Screening Last Done: 05/27/24 21:29
*ED COVID-19 Vaccine History Last Done: 05/27/24 21:29
ED- Cardiac Assessment Last Done: 05/27/24 21:29
Discharge Date and Time
Print Language: BOTSWANAN
[2024-05-28] VITALS: BP 103/51
[2024-05-28 00:13] LABS: Troponin I < 0.012 ng/ml
== END 2024-05-28 00:39 | disposition home or self-care (01) ==
LOC: EMR 20:36
PROVIDERS: Emergency Medicine; EMERGENCY PHYSICIAN Emergency Medicine; FAMILY PHYSICIAN Internal Medicine
DX: R07.89 Other chest pain (principal); J44.89 Other specified chronic obstructive pulmonary disease; I48.91 Unspecified atrial fibrillation; I25.10 Atherosclerotic heart disease of native coronary artery without angina pectoris; I10 Essential (primary) hypertension; K21.9 Gastro-esophageal reflux disease without esophagitis; G47.30 Sleep apnea, unspecified; E78.00 Pure hypercholesterolemia, unspecified; E11.9 Type 2 diabetes mellitus without complications; K58.9 Irritable bowel syndrome, unspecified; M79.7 Fibromyalgia; Z79.01 Long term (current) use of anticoagulants; Z87.891 Personal history of nicotine dependence; Z90.49 Acquired absence of other specified parts of digestive tract
CPT/HCPCS: 99284; 96374; 96376; 96361; 71045; 71275; 74174; 80048; 84443; 84484; 85025; 85610; 85730; 93005; Q9967

== ENCOUNTER 2024-08-16 00:52 | Emergency (ER) | payer MEDICARE, SELFPAY ==
[2024-08-16] VITALS (7 sets, daily range): BP systolic 104–134; BP diastolic 58–73; BMI 45.9
--- NOTE | 2024-08-16 01:16 | ED.GENMED ---
History of Present Illness
General
Chief Complaint: Chest Pain
Source: patient
Exam Limitations: none
Time Seen by Provider: 08/16/24 01:07
History of Present Illness
History of Present Illness:
73-year-old female with history of A-fib on Eliquis presents with intermittent stabbing chest pain that radiates to the back over the past several days but worse over the past hour. She notes she is short of breath. No travel or surgery. The pain
is not made any worse with deep breathing. Currently the pain is constant. She has a history of asthma. No leg swelling or calf pain. Pain is not made worse with eating. No other complaints
Past History
Past History
ED Past Medical History: Asthma, COPD, Fibromyalgia, HTN and Other (ibs, complex Migraines, fibromyalgia, diverticulitis, sleep apnea); Negative CAD, IDDM, NIDDM or ID
ED Past Surgical History: Appendectomy, Cholecystectomy, Tonsilectomy and Other (partial gastrectomy, Billroth II)
Social History
Tobacco: Former smoker
Alcohol: None
Drug: None
Personal:
Living: with family
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
Family History
Family History: Other (No significant)
Phy Exam
Physical Exam
Physical Exam:
General: Well-appearing female no acute respiratory distress
HEENT: Normocephalic atraumatic
Heart: Regular rate and rhythm no murmurs
Lungs: Clear no wheeze
Abdomen is soft nontender nondistended no guarding or rebound normal bowel
Extremities: No cyanosis or edema
Scores
Heart Score for Chest Pain Patients
STEMI patient?: No
History: Slightly or Non-Suspicious
ECG: Normal
Age: >/= 65 years
Risk Factors: 1 or 2 Risk Factors
Troponin: </= Normal Limit
Heart Score for Chest Pain Patients: 3
Heart Score Risk: 2.5% MACE over next 6 weeks
Course
Orders/Labs/Results
Orders:
Orders
08/16/24 01:01
Electrocardiogram (*1) Urgent
Reason for Study: Other
Other Reason for Exam: Respiratory Distress
Cardiac Monitoring- Treatment ONCE
IV Insert/Care/Rem.- Treatment PRN
CR Chest - 2 Views Urgent
Comment:
Reason For Exam: respiratory distress
O2 Therapy [RESP] Urgent
Titrate/Wean O2 to maintain O2 sat greater than (%): 93
Special Instructions: TO MAINTAIN CONTINUOUS O2 SATS >/= 93%
Pulse Ox/cont/shift [RESP] Urgent
Quantity: 1
Special Instructions: continuous pulse ox
08/16/24 01:02
EKG- Treatment ONCE
08/16/24 01:40
CT Chest PE Study Urgent
Comment:
Reason For Exam: chest and shoulder pain
08/16/24 01:46
Complete Blood Count/With Diff Urgent
Comprehensive Metabolic Panel Urgent
NT-proBNP Urgent
Troponin I Urgent
08/16/24 05:07
Troponin I Urgent
Abnormal Lab Results
08/16/24
01:46
RBC 4.02 L 10^6/uL
(4.20-5.40)
MCH 31.6 H pg
(27.0-31.0)
Lymphocytes % 17.6 L %
(20.5-51.1)
Carbon Dioxide 31 H mmol/L
(22-30)
BUN 33 H mg/dl
(7-17)
Glucose 106 H mg/dl
(70-99)
08/16/24 01:46
08/16/24 01:46
Vital Signs
Initial and Last Documented VS:
Initial Vital Signs
Temp Pulse Resp BP Pulse Ox
97.9 F 67 20 134/64 98
08/16/24 00:56 08/16/24 00:56 08/16/24 00:56 08/16/24 00:56 08/16/24 00:56
Last Documented Vital Signs
Temp Pulse Resp BP Pulse Ox
97.9 F 61 14 109/69 94
08/16/24 00:56 08/16/24 06:00 08/16/24 02:00 08/16/24 06:00 08/16/24 06:00
MDM/Problems Addressed
Differential Diagnosis Includes:
Sharp chest pain. Differential could include ACS less likely be PE secondary to anticoagulated state. Vital signs are stable. Will check chest x-ray for any pneumothorax or widened mediastinum.
EKG through triage shows sinus rhythm without ischemic changes
Labs pending
*Critical Care Note
Total Time (30-74mins, 75-104mins- exclusive of procedures): Not Applicable
Update Note
Update Note:
Initial troponin undetectable. Chest x-ray clear. Did order CT of chest secondary to chest and shoulder blade pain. This is pending. Repeat troponin pending as well.
ED Attending Note
-
Portions of this chart may have been created with voice recognition software.� Occasional wrong word or��sound alike� substitutions may have occurred due to the inherent limitations of voice recognition software.
Discharge Plan
Departure
Patient Disposition: Home (Routine Discharge)
Date of Disposition: 08/16/24
Time of Disposition: 06:17
Patient with high blood pressure during this ER visit?: No
Discharge Problem:
Chest pain
Instructions: Chest Pain CBC Follow Up
Prescriptions:
No Action
duloxetine [Cymbalta] 60 MG capsule,delayed release(DR/EC)
60 mg PO HS
Rx Instructions:
taken w/ 30mg = 90mg
albuterol sulfate 2.5 MG/3 ML solution for nebulization
2.5 mg inhalation R Q4HPRN PRN (Reason: asthma)
aspirin 81 MG tablet,chewable
81 mg PO DAILY Qty: 81 0RF
Dupixent Syringe 300 MG/2 ML syringe
300 mg SQ Q2W
atorvastatin 80 mg tablet
80 mg PO QPM
levothyroxine 100 mcg tablet
100 mcg PO DAILY
lisinopril-hydrochlorothiazide 20-25 mg tablet
1 tab PO HS
topiramate 100 mg tablet
100 mg PO BID
duloxetine 30 mg capsule,delayed release(DR/EC)
30 mg PO HS
Rx Instructions:
taken w/ 60mg = 90mg
dexlansoprazole 60 mg capsule,biphase delayed releas
60 mg PO DAILY
buspirone 10 mg tablet
10 mg PO BID
levalbuterol tartrate 45 mcg/actuation HFA aerosol inhaler
1 puff INHALATION R Q6HPRN PRN (Reason: sob/wheezing)
Botox 200 unit recon soln
200 unit intradermal [id number]
Trelegy Ellipta 200-62.5-25 mcg blister with device
1 inh INHALATION R DAILY
lubiprostone [Amitiza] 24 mcg Capsule
24 mcg PO BID
Eliquis 5 mg tablet
5 mg PO BID Qty: 60 0RF
Referrals:
UNKNOWN - PT DOES,NOT KNOW [Family Provider] -
Activity Restrictions/Additional Instructions:
Please return here for worsening symptoms otherwise follow-up with your doctor
Interventions
Interventions:
*Risk Screen - Suicide Last Done: 08/16/24 00:56
*General Assessment Last Done: 08/16/24 00:56
*Neglect/Abuse Screening Last Done: 08/16/24 00:56
ED- Fall Risk Assessment Last Done: 08/16/24 00:56
*ED COVID-19 Vaccine History Last Done: 08/16/24 01:30
*Nursing Disposition Last Done: 08/16/24 06:33
ED- Cardiac Assessment Last Done: 08/16/24 01:56
Discharge Date and Time
Discharge Date/Time: 08/16/24 06:33
Print Language: MACEDONIAN
[2024-08-16 01:55] LABS: % Basophils 0.5 % (0-2); % Eosinophils 3.3 % (0-6); % Immature Granulocytes 0.5 % (0-0.5); % Lymphocytes 17.6 % (20.5-51.1); % Monocytes 6.9 % (1.7-9.3); % Neutrophils 71.2 % (42.2-75.2); Absolute Eosinophils 0.3 10^3/uL (0-0.7); Absolute Lymphocytes 1.5 10^3/uL (1.2-3.4); Absolute Monocytes 0.6 10^3/uL (0.1-0.6); Absolute Neutrophils 6.1 10^3/uL (1.4-6.5); Hematocrit 38.3 % (37.0-47.0); Hemoglobin 12.7 g/dL (12.0-16.0); Mean Corp Hgb Conc. 33.2 g/dL (33.0-37.0); Mean Corpuscular Hgb 31.6 pg (27.0-31.0); Mean Corpuscular Volume 95.3 fL (81.0-99.0); Mean Platelet Volume 9.9 fL (7.4-10.4); Nucleated Red Blood Cells % 0 %; Platelet Count 255 10^3/uL (130-400); Red Blood Cell Count 4.02 10^6/uL (4.20-5.40); Red Cell Dist. Width 13.2 % (11.5-14.5); White Blood Cell Count 8.5 10^3/uL (4.8-10.8)
[2024-08-16 02:09] LABS: ALT (SGPT) 21 U/L (0-35); AST (SGOT) 20 U/L (14-36); Alkaline Phosphatase 115 U/L (38-126); Blood Urea Nitrogen 33 mg/dl (7-17); Calcium 9.3 mg/dl (8.4-10.2); Carbon Dioxide 31 mmol/L (22-30); Chloride 104 mmol/L (98-107); Estimated Creatinine Clearance 64 ml/min; Glucose 106 mg/dl (70-99); Potassium 4.5 mmol/L (3.5-5.1); Sodium 141 mmol/L (135-145); Total Bilirubin 0.3 mg/dl (0.2-1.3); Total Protein 6.5 g/dl (6.3-8.2); eGFR > 60.00
--- NOTE | 2024-08-16 02:15 | EDRN ---
Pt has had couple days of sharp stabbing upper mid chest pain radiating to her back that was intermittent. Pain became constant over past few hours. Pt says she has not been able to go to sleep because of the pain. Pt did not take any pain
medication. Pt has chronic sob and feels it is worse than usual. Pt had nausea and decreased appetite. Pt denies fever/chills/cough, abd pain, vomiting, urinary symptoms, weakness, dizziness. Pt denies swelling, pain in her legs, recent long car
rides/airplane travel.
[2024-08-16 02:22] LABS: NT-proBNP 39.3 pg/ml; Troponin I < 0.012 ng/ml
[2024-08-16 05:52] LABS: Troponin I < 0.012 ng/ml
== END 2024-08-16 06:33 | disposition home or self-care (01) ==
LOC: EMR 00:52
PROVIDERS: Physician Assistant; EMERGENCY PHYSICIAN Student in an Organized Health Care Education/Training Program
DX: R07.89 Other chest pain (principal); J44.89 Other specified chronic obstructive pulmonary disease; M79.7 Fibromyalgia; I10 Essential (primary) hypertension; K58.9 Irritable bowel syndrome, unspecified; G47.30 Sleep apnea, unspecified; I48.91 Unspecified atrial fibrillation; Z79.01 Long term (current) use of anticoagulants; Z87.891 Personal history of nicotine dependence; Z90.3 Acquired absence of stomach [part of]; Z90.49 Acquired absence of other specified parts of digestive tract
CPT/HCPCS: 99284; 71046; 71275; 80053; 83880; 84484; 85025; 93005; Q9967

== ENCOUNTER → 2024-08-20 09:40 | Outpatient (REF) | payer MEDICARE, SELFPAY | LOC: RAD 09:40 | PROVIDERS: ATTENDING PHYSICIAN Internal Medicine Gastroenterology; FAMILY PHYSICIAN Internal Medicine | DX: R12 Heartburn (principal); R13.10 Dysphagia, unspecified | CPT/HCPCS: 74177; Q9967 ==

== ENCOUNTER → 2024-08-25 10:33 | Outpatient (REF) | payer MEDICARE, SELFPAY | LOC: RCS 10:33 | PROVIDERS: ATTENDING PHYSICIAN Internal Medicine Cardiovascular Disease; FAMILY PHYSICIAN Internal Medicine | DX: R00.2 Palpitations (principal) | CPT/HCPCS: 93225; 93226 ==

== ENCOUNTER → 2025-05-24 07:30 | Outpatient (REF) | payer MEDICARE, SELFPAY | LOC: WDC 07:30 | PROVIDERS: ATTENDING PHYSICIAN Hospitalist | DX: Z12.31 Encounter for screening mammogram for malignant neoplasm of breast (principal) | CPT/HCPCS: 77063; 77067 ==